=== PATIENT | female | born 1965 | race African-American/Black ===

== ENCOUNTER 2017-07-27 09:16 | Emergency (ER) | payer BC, OTHER ==
[~2017-07-27] VITALS: Ht 160 cm; Wt 60.0 kg
[2017-07-27 09:17] VITALS: Ht 160 cm; Wt 60.0 kg
--- NOTE | 2017-07-27 09:53 | ERD ---
ER Documentation Chief Complaint Date/Time DATE: 07/27/17 TIME: 09:48 Chief Complaint R FOOT INJURED WHILE WORKING OUT HPI This is a 51-year-old female who presents to the emergency department today complaining of right calf and Achilles pain after injuring herself while at the gym today. Patient states she was doing sprints with a band tight around her and was running forward when she felt a pop in her calf. Has any foot pain. Denies any previous trauma, fevers or chills. States she is able to ambulate with pain. ROS All systems reviewed and are negative except as per history of present illness. Medications Home Meds Active Scripts Naproxen* (Naprosyn*) 500 Mg Tablet, 500 MG PO BID Y for PAIN AND/OR INFLAMMATION, #30 TAB Prov:AUDREY MEDINA PA-C 07/27/17 Allergies Allergies: Coded Allergies: Penicillins (Verified Allergy, Mild, 07/27/17) PMhx/Soc Medical and Surgical Hx: pt denies Medical Hx, pt denies Surgical Hx History of Surgery: No Anesthesia Reaction: No Hx Neurological Disorder: No Hx Respiratory Disorders: No Hx Cardiac Disorders: No Hx Psychiatric Problems: No Hx Miscellaneous Medical Probl: No Hx Alcohol Use: No Hx Substance Use: No Hx Tobacco Use: No Smoking Status: Never smoker Physical Exam Vitals Vital Signs Date Time Temp Pulse Resp B/P Pulse Ox O2 Delivery O2 Flow Rate FiO2 07/27/17 09:17 98.6 82 18 129/80 99 Physical Exam Const: NAD Head: Atraumatic Eyes: Normal Conjunctiva ENT: Normal External Ears, Nose and Mouth. Neck: Full range of motion..~ No meningismus. Resp: Clear to auscultation bilaterally Cardio: Regular rate and rhythm, no murmurs Skin: No petechiae or rashes MSk: Right Achilles and gastroc with no obvious deformity, no effusion, no ecchymosis. Mild tenderness palpation Achilles and gastroc. Nontender medial and lateral malleolus. Nontender foot. Full active range of motion at ankle. Positive Beatty test. pulses 2+. Distal neurovascularly intact Neur: Awake and alert Psych: Normal Mood and Affect Procedures/MDM This is a 51-year-old female who presents the emergency department today complaining of right Achilles and gastroc pain and hearing a "pop" while doing some sprints with a band at her gym this morning. Patient is able to slightly ambulate. On physical exam she has some tenderness over her gastroc and her Achilles. She does have full active range of motion at her ankle and I do not feel she requires imaging at this time. I did have some concern for Achilles tear as patient does have a positive Beatty test. Patient is afebrile and otherwise well-appearing. Patient was in a splint in slight plantarflexion. Distal neurovascularly intact pre-and post splint application. she was also given crutches to help ambulate. Patient declined any pain medication here in the emergency department. She will be given a prescription for Naprosyn for home. Patient did indicate that she has an [employer] [facility] insurance and feels that she would be able to seen by her primary care doctor fairly quickly. I did also explain to her that given her insurance she likely would not need referral and may go straight to an loss mitigation specialist. I explained her that she may need further evaluation with an MRI or foot and ankle specialist. Patient understood. She will be given a list of orthopedic resources as well. Patient was inquiring about x-rays and I explained to the patient that she does not have any joint pain and therefore do not feel that she has an acute fracture or dislocation. She did not have any pain over her medial or lateral malleolus. She had no pain over her entire foot. I do feel this is more musculoskeletal in relation to her Achilles tendon. Patient understood. At this time the patient is stable for discharge and outpatient management. Patient should follow up with their PCP in the next 1-2 days. They may return to the emergency department sooner for any persistent or worsening of symptoms. Patient understood and agreed with the plan. Discussed the patient with Dr. Yu and he is in agreement with the plan. Departure Diagnosis: Primary Impression: Pain in Achilles tendon Condition: AUDREY Zabala PA-C Jul 27, 2017 09:53
[2017-07-27] MEDS ORDERED: NAPR-260 PO (10:00)
== END 2017-07-27 10:31 | disposition home or self-care (01) ==
LOC: FTE 09:16
DX: M79.671 Pain in right foot (principal)
CPT/HCPCS: 99283